=== PATIENT | male | born 1955 | race Caucasian/White ===

== ENCOUNTER 2016-10-08 07:06 | Day surgery (SDC) | payer OTHER ==
[2016-10-08] MEDS ORDERED: ceFAZolin 2 GM/50 ML 50 ML IV ONE (07:21)
[2016-10-08] MEDS ORDERED: LACTATED RINGERS 1,000 ML IV ONE ×3 (07:45→13:00)
[2016-10-08] MEDS ORDERED: ROCURONIUM 50 MG/5 ML VIAL IVP ONE (09:00)
[2016-10-08] MEDS ORDERED: DEXAMETHASONE 4 MG/ML VIAL IVP ONE (09:00)
[2016-10-08] MEDS ORDERED: MIDAZOLAM 2 MG/2 ML VIAL IVP ONE (09:00)
[2016-10-08] MEDS ORDERED: GLYCOPYRROLATE 1 MG/5 ML VIAL IVP ONE (09:00)
[2016-10-08] MEDS ORDERED: ePHEDrine 50 MG/ML VIAL IVP ONE (09:00)
[2016-10-08] MEDS ORDERED: LIDOCAINE-MPF 2% 5 ML VIAL IM ONE (09:00)
[2016-10-08] MEDS ORDERED: fentaNYL 100 MCG/2 ML VIAL IVP ONE (09:00)
[2016-10-08] MEDS ORDERED: ONDANSETRON 4 MG/2 ML VIAL IVP ONE (09:00)
[2016-10-08] MEDS ORDERED: NEOSTIGMINE 1 MG/1 ML 10 ML MDV IVP ONE (09:00)
[2016-10-08] MEDS ORDERED: PROPOFOL 200 MG/20 ML VIAL IVP ONE (09:00)
[2016-10-08] MEDS ORDERED: SODIUM CHLORIDE 0.9% 10 ML VIAL IV ONE (09:00)
[2016-10-08] MEDS ORDERED: SUCCINYLCHOLINE 200 MG/10 ML VIAL IVP ONE (09:00)
[2016-10-08] MEDS ORDERED: BUPIVACAINE 0.5% PF 30 ML VIAL INFIL ONE (09:38)
[2016-10-08] MEDS: HYDROmorphone 1 MG/ML SYRINGE ONE ×2 (11:13→11:25)
[2016-10-08] MEDS ORDERED: oxyCOD/ACETAMIN 5 MG/325 MG TABLET PO ONE (13:08)
== END 2016-10-08 07:07 | disposition home or self-care (01) ==
PROC: 0YU54JZ Supplement Right Inguinal Region with Synthetic Substitute, Percutaneous Endoscopic Approach (ICD-10-PCS; principal; 2016-10-08 08:15)
DX: K40.90 Unilateral inguinal hernia, without obstruction or gangrene, not specified as recurrent (principal); I25.10 Atherosclerotic heart disease of native coronary artery without angina pectoris; Z95.5 Presence of coronary angioplasty implant and graft; G47.33 Obstructive sleep apnea (adult) (pediatric); M35.3 Polymyalgia rheumatica
CPT/HCPCS: 49650; A9270; C1781; J0690; J1170; J7120

== ENCOUNTER 2019-09-10 11:21 | Emergency (ER) | payer OTHER, MEDICARE ==
[2019-09-10 11:37] VITALS: BP 129/72
--- NOTE | 2019-09-10 12:58 | ED Physician Documentation ---
PD HPI LOWER EXT INJURY - Stated complaint Stated Complaint: L LEG PX - Chief complaint Chief Complaint: Ext Problem - History obtained from History obtained from: Patient - History of Present Illness PD HPI LOW EXT INJURY LOCATION: Left (at work about a week ago a large box fell on the lateral side of his left leg and he has persistent pain there. He can walk and bear weight. Pain is actually worse at night and when he is inactive compared to when he is active.) Review of Systems Constitutional: reports: Reviewed and negative Cardiac: reports: Reviewed and negative Respiratory: reports: Reviewed and negative PD PAST MEDICAL HISTORY - Past Medical History Cardiovascular: Coronary artery disease, Angina Respiratory: Sleep apnea Neuro: None Endocrine/Autoimmune: None GI: None : None HEENT: Chronic vision loss Psych: None Musculoskeletal: Rheumatoid arthritis, Chronic back pain Derm: None Other Past Medical History: polymyalgia rheumatica - Past Surgical History Past Surgical History: Yes Ortho: Spine surgery Cardiovascular: Coronary stent - Present Medications Home Medications: Ambulatory Orders Medication Instructions Recorded Confirmed Aspirin [Aspir-Low] 81 mg PO DAILY 10/02/16 10/08/16 Metoprolol [place]/Hydrochlorothiaz 25 mg PO DAILY 10/02/16 10/08/16 [Metoprolol ER-Hctz 25-12.5 mg] Rosuvastatin Calcium [Crestor] 40 mg PO DAILY 10/02/16 10/08/16 predniSONE [Prednisone] 5 mg PO DAILY 10/02/16 10/08/16 Hydrocodone/Acetaminophen 1 - 2 each PO Q6H PRN #10 tablet 09/10/19 [Hydrocodon-Acetaminophen 5-325] - Allergies Allergies/Adverse Reactions: Allergies Allergy/AdvReac Type Severity Reaction Status Date / Time morphine AdvReac Nausea Verified 09/10/19 11:38 - Social History Does the pt smoke?: No Smoking Status: Former smoker Does the pt drink ETOH?: Yes Does the pt have substance abuse?: No - Immunizations Immunizations are current?: No Immunizations: TDAP >10years/unknown PD ED PE NORMAL - Vitals Vital signs reviewed: Yes - General General: Alert and oriented X 3, No acute distress - Extremities Extremities: Other (Some diffuse tenderness over the lateral side of the left leg without calf tenderness. Mostly over the lateral ankle and the fibula above that. No foot tenderness. No knee tenderness. Normal neurovascular function in the foot. No evidence of compartment syndrome.) - Neuro Neuro: Alert and oriented X 3, Normal speech Results - Vitals Vitals: Vital Signs - 24 hr 09/10/19 11:35 Temperature 36.3 C L Heart Rate 81 Respiratory 16 Rate Blood Pressure 129/72 O2 Saturation 99 Oxygen O2 Source Room air - Rads (name of study) XR L ankle and Tib Fib Radiology: EMP read contemporaneously (normal) Departure - Departure Disposition: Home, Self Care Clinical Impression: Contusion of left leg Condition: Good Record reviewed to determine appropriate education?: Yes Instructions: ED Contusion Lower Ext Prescriptions: Hydrocodone/Acetaminophen [Hydrocodon-Acetaminophen 5-325] 1 - 2 each PO Q6H PRN #10 tablet PRN Reason: pain Comments: Recheck with your doctor in 1 week if not better, return for new or worsening symptoms. Discharge Date/Time: 09/10/19 13:32
--- NOTE | 2019-09-10 13:34 | XRAY Report ---
Reason: injury Procedure Date: 09/10/2019 Accession Number: [id number] / [id number] Procedure: XR - Tib/Fib LT CPT Code: Final Report FULL RESULT: EXAM: LEFT TIBIA/FIBULA RADIOGRAPHY EXAM DATE: 09/10/2019 12:00 PM. CLINICAL HISTORY: Pain after injury. COMPARISON: None. TECHNIQUE: 2 views. FINDINGS: Bones: Normal. No fracture or bone lesion. Joints: The visualized knee and ankle joints are normal. No effusions. Soft Tissues: Normal. No soft tissue swelling. IMPRESSION: Normal tibia/fibula radiography. RAD[facility]
--- NOTE | 2019-09-10 13:35 | XRAY Report ---
Reason: injury Procedure Date: 09/10/2019 Accession Number: [id number] / [id number] Procedure: XR - Ankle 3 View LT CPT Code: Final Report FULL RESULT: EXAM: LEFT ANKLE RADIOGRAPHY EXAM DATE: 09/10/2019 12:00 PM. CLINICAL HISTORY: Injury. 100 pound box fell on lower leg and ankle last week. Pain ever since. COMPARISON: None. TECHNIQUE: 3 views. FINDINGS: Bones: Small os trigonum is noted. No fractures or bone lesions. Joints: Normal. No effusion. No subluxations. The ankle mortise is normally aligned. Soft Tissues: Moderate soft tissue swelling over the lateral lower left leg. IMPRESSION: No fracture or malalignment. RADIA
== END 2019-09-10 13:32 | disposition home or self-care (01) ==
LOC: ED 11:21
DX: S80.12XA Contusion of left lower leg, initial encounter (principal); W20.8XXA Other cause of strike by thrown, projected or falling object, initial encounter; Y93.89 Activity, other specified; Y99.0 Civilian activity done for income or pay; M35.3 Polymyalgia rheumatica; Z79.82 Long term (current) use of aspirin; Z87.891 Personal history of nicotine dependence
CPT/HCPCS: 1040M; 73590; 73610; 99283

== ENCOUNTER 2020-06-26 05:13 | Emergency (ER) | payer MEDICARE, OTHER ==
--- NOTE | 2020-06-26 05:15 | ED Physician Documentation ---
PD HPI CHEST PAIN - Stated complaint Stated Complaint: CHEST PX - History obtained from History obtained from: Patient - History of Present Illness Timing - onset: How many hours ago (12), Yesterday (about 5 pm, soon after eating meal.) Timing - onset during: Eating (soon after done eating dinner; was slightly spicy.) Timing - duration: Hours (12) Timing - details: Abrupt onset, Still present (epigastric pain worsens with lying down, better sitting up but then upper back hurts more. Has not eaten since onset. No change with antacids though.), Waxing and waning Quality: Aching, Sharp, Pain Location: Substernal Radiation: Back, Left upper extremity (shoulders), Right upper extremity Improved by: No: Antacids Worsened by: Position (better sitting up). No: Inspiration, Eating Associated symptoms: Nausea. No: Shortness of air, Diaphoresis, Feeling faint / dizzy, General Weakness, Cough Similar symptoms before: Has not had sx before (has had unstable angina 2013 with stent placed. No ND. Did not feel like this, though.) Recently seen: Not recently seen Review of Systems Constitutional: denies: Fever, Chills Nose: denies: Rhinorrhea / runny nose, Congestion Throat: denies: Sore throat Cardiac: reports: Chest pain / pressure (just since last evening; no recent exertional CP nor dyspnea.). denies: Palpitations, Pedal edema, Calf pain Respiratory: denies: Cough GI: denies: Abdominal Pain, Nausea, Vomiting, Diarrhea Skin: denies: Rash, Lesions Neurologic: denies: Generalized weakness, Near syncope PD PAST MEDICAL HISTORY - Past Medical History Cardiovascular: Coronary artery disease, Angina Respiratory: Sleep apnea Neuro: None Endocrine/Autoimmune: None GI: None : None HEENT: Chronic vision loss Psych: None Musculoskeletal: Rheumatoid arthritis, Chronic back pain Derm: None - Past Surgical History Past Surgical History: Yes Ortho: Spine surgery Cardiovascular: Coronary stent - Present Medications Home Medications: Ambulatory Orders Medication Instructions Recorded Confirmed Aspirin [Aspir-Low] 325 mg PO DAILY 10/02/16 10/08/16 Metoprolol Osuna/Hydrochlorothiaz 25 mg PO DAILY 10/02/16 10/08/16 [Metoprolol ER-Hctz 25-12.5 mg] Rosuvastatin Calcium [Crestor] 40 mg PO DAILY 10/02/16 10/08/16 predniSONE [Prednisone] 2.5 mg PO DAILY 10/02/16 10/08/16 Methotrexate 06/26/20 - Allergies Allergies/Adverse Reactions: Allergies Allergy/AdvReac Type Severity Reaction Status Date / Time morphine AdvReac Nausea Verified 06/26/20 05:24 - Social History Does the pt smoke?: No Smoking Status: Former smoker Does the pt drink ETOH?: Yes Does the pt have substance abuse?: No - Immunizations Immunizations are current?: No Immunizations: TDAP >10years/unknown PD ED PE NORMAL - Vitals Vital signs reviewed: Yes - General General: Alert and oriented X 3, No acute distress, Well developed/nourished - HEENT HEENT: Pharynx benign - Neck Neck: Supple, no meningeal sign, No adenopathy - Cardiac Cardiac: RRR, No murmur - Respiratory Respiratory: Clear bilaterally - Abdomen Abdomen: Normal bowel sounds, Soft, Non tender, Non distended - Back Back: No CVA TTP - Derm Derm: Normal color, Warm and dry - Extremities Extremities: No tenderness to palpate, Normal ROM s pain, No edema, No calf tenderness / cord - Neuro Neuro: Alert and oriented X 3, No motor deficit, Normal speech Results - Vitals Vitals: Vital Signs - 24 hr 06/26/20 06/26/20 06/26/20 05:20 05:53 06:20 Temperature 36.8 C 36.8 C Heart Rate 111 H 94 99 Respiratory 20 16 16 Rate Blood Pressure 151/84 H 127/81 H 123/68 O2 Saturation 98 97 99 06/26/20 06/26/20 06/26/20 06:27 06:30 07:00 Temperature 36.8 C Heart Rate 108 H 94 99 Respiratory 16 14 Rate Blood Pressure 114/66 105/62 102/62 O2 Saturation 100 98 Oxygen O2 Source Room air - EKG (time done) 05:19 Rate: Rate (enter#) (102) Rhythm: Sinus tachycardia [place]: Normal Intervals: Normal MO QRS: Poor R wave progression Ischemia: Normal ST segments. No: ST elevation c/w ischemia, ST depression - Labs Labs: Laboratory Tests 06/26/20 06/26/20 06/26/20 05:31 05:31 05:31 WBC 11.5 H RBC 4.33 L Hgb 14.3 Hct 41.9 L MCV 96.8 H MCH 33.0 H MCHC 34.1 RDW 12.7 Plt Count 250 MPV 9.3 Neut # (Auto) 10.0 H Lymph # (Auto) 0.5 L [place] # (Auto) 0.9 Eos # (Auto) 0.1 Baso # (Auto) 0.0 Absolute Nucleated RBC 0.00 Nucleated RBC % 0.0 Sodium 137 Potassium 3.8 Chloride 103 Carbon Dioxide 22 Anion Gap 12.0 BUN 18 Creatinine 1.0 Estimated GFR (MDRD) 75 L Glucose 127 H Calcium 10.3 Total Bilirubin 1.3 H AST 26 ALT 39 Alkaline Phosphatase 61 Troponin I High Sens 10.1 Total Protein 7.2 Albumin 4.7 Globulin 2.5 Albumin/Globulin Ratio 1.9 Lipase 37 - Rads (name of study) chest xray Radiology: Prelim report reviewed (possible small opacity right lower lobe; consideration bronchiolitis, pneumonia), See rad report PD MEDICAL DECISION MAKING - ED course Complexity details: reviewed results, re-evaluated patient (no change with GI cocktail. No change with NTG. CXR clear. Labs without acute process. At this point, also consider vascular, such as dissection. Will get angio. ), considered differential (Your myocardial ischemia, lung process, gastritis or gallbladder, pancreatitis. Will check EKG chest x-ray and labs.), d/w patient ED course: The patient did not have any improvement with a GI cocktail nor nitroglycerin. Toradol is seeming to have some effect starting. He had had a negative troponin at 12 hours after onset of symptoms which seems reasonably conclusive but we can still repeated at 2 hours to be quite sure. Otherwise his description of pain is potentially concerning for vascular and given no other good explanation at this point, I talked with the patient and we shared decision making for angio of the chest to evaluate the aorta. At this point that test is pending. Care is given over to Dr. Quinonez who is the oncoming ER physician and will await the angio results and follow-up with the patient's clinical state and troponin repeat. Departure - Departure Clinical Impression: Chest pain Condition: Stable Record reviewed to determine appropriate education?: Yes
[2020-06-26] MEDS ORDERED: MAG HYDROX/AL HYDROX/SIMETH 30 ML UDC PO STA (05:35)
[2020-06-26] MEDS ORDERED: LIDOCAINE VISCOUS 2% 15 ML UDC MM STA (05:35)
[2020-06-26 05:42] LABS: BASOPHILS % (AUTO) 0.3 %; EOSINOPHILS # (AUTO) 0.1 10^3/uL (0.0-0.7); EOSINOPHILS % (AUTO) 0.4 %; HGB - HEMOGLOBIN 14.3 g/dL (14.0-18.0); LYMPHOCYTES # (AUTO) 0.5 10^3/uL (1.5-3.5); LYMPHOCYTES % (AUTO) 4.7 %; MEAN CORPUSCULAR HGB CONC 34.1 g/dL (32.0-36.0); MEAN CORPUSCULAR VOLUME 96.8 fL (80.0-94.0); MEAN PLATELET VOLUME 9.3 fL (7.4-11.4); MONOCYTES # (AUTO) 0.9 10^3/uL (0.0-1.0); MONOCYTES % (AUTO) 7.7 %; NEUTROPHILS % (AUTO) 86.6 %; PLT - PLATELET COUNT 250 10^3/uL (130-450); RED BLOOD COUNT 4.33 10^6/uL (4.70-6.10); RED CELL DISTRIBUTION WIDTH 12.7 % (12.0-15.0); WHITE BLOOD COUNT 11.5 x10^3/uL (4.8-10.8)
[2020-06-26 06:16] LABS: ALBUMIN 4.7 g/dL (3.2-5.5); ALBUMIN/GLOBULIN RATIO 1.9 (1.0-2.2); BILIRUBIN,TOTAL 1.3 mg/dL (0.2-1.0); CALCIUM 10.3 mg/dL (8.5-10.3); TOTAL PROTEIN 7.2 g/dL (6.7-8.2)
[2020-06-26] MEDS ORDERED: NITROGLYCERIN SL 0.4 MG TABLET SL STA (06:17)
[2020-06-26] MEDS ORDERED: KETOROLAC 30 MG/ML VIAL IVP STA (06:21)
[2020-06-26] MEDS ORDERED: IOVERSOL 320 100 ML VIAL IVP ONE ×2 (07:05→15:22)
--- NOTE | 2020-06-26 07:35 | ED Physician Documentation ---
ED Addendum - Addendum Addendum: 06/26/20 07:[address] Erazo at shift change. Briefly this is a 64-year-old gentleman with history of coronary disease, stented once in 2013 who developed upper abdominal pain rating to the back and shoulder blades last night after eating hot and sour soup. At home he took some hydrocodone, and acids. On my evaluation he is feeling better after a GI cocktail and some Toradol. Initial troponin negative, EKG nonischemic. Dr. Erazo sent him for CT angiography of the chest to rule out dissection, waiting on radiology read but to my eye grossly negative. Chest x-ray concerning for some bronchial wall thickening in the right lower lobe, I do not really appreciate this on the CAT scan, will await CT read before addressing this. Will check a second troponin. He is nontender in the right upper quadrant. 06/26/20 08:35 Repeat troponin completely flat, 10, 10. CT angiography negative per the radiologist. 06/26/20 08:36 Disposition discharged home, condition stable Diagnosis 1. Unspecified chest pain
--- NOTE | 2020-06-26 08:34 | CT Report ---
PROCEDURE: ANGIO CHEST W/WO INDICATIONS: chest to back pain; evaluate aorta CONTRAST: IV CONTRAST: Optiray 320 ml: 80 PO CONTRAST: *NO PO CONTRAST TECHNIQUE: After the administration of intravenous contrast, 2 mm thick sections acquired from the pulmonary api tony to the posterior costophrenic angles. 3-dimensional maximum intensity projection (MIP) coronal a nd sagittal reformats were then acquired through the thorax. For radiation dose reduction, the follow ing was used: automated exposure control, adjustment of mA and/or kV according to patient size. COMPARISON: Chest x-ray 06/26/2020 FINDINGS: Image quality: Excellent. Pulmonary arteries: Pulmonary arteries are normal in size, and demonstrate no intraluminal filling d efects to suggest central pulmonary embolism. Lungs and pleura: Lungs are clear. No pleural effusions or pneumothorax. Central and peripheral ai rways are patent. Mediastinum: Heart size is normal, without pericardial effusion. No mediastinal or hilar adenopathy . Thoracic aorta is normal in caliber and enhancement. There is no aneurysmal dilation, vascular oc clusion, hemodynamically significant stenosis or dissection. Esophagus is normal in caliber, with mil d hiatal hernia. Bones and chest wall: No suspicious bony lesions. Ribs and thoracic spine appear intact throughout. Is unremarkable No axillary or supraclavicular adenopathy. Abdomen: Visualized upper abdominal solid organs appear normal in the early arterial phase of enhanc ement. IMPRESSION: 1. No pulmonary embolism. 2. Aorta demonstrates no areas of hemodynamically significant stenosis, vascular occlusion, aneurysma l dilation or dissection. Reviewed by: Suellen Tee MD on 06/26/2020 8:32 AM PST Approved by: Suellen Tee MD on 06/26/2020 8:32 AM PST Station ID: [id number]
[2020-06-26 08:44] VITALS: BP 102/60
--- NOTE | 2020-06-26 09:32 | XRAY Report ---
PROCEDURE: Chest 1 View X-Ray INDICATIONS: Chest Pain TECHNIQUE: One view of the chest was acquired. COMPARISON: 05/16/2014 FINDINGS: Surgical changes and devices: None. Lungs and pleura: No pleural effusions or pneumothorax. Lungs are clear. Mediastinum: Mediastinal contours appear normal. Heart size is normal. Bones and chest wall: No suspicious bony lesions. Overlying soft tissues appear unremarkable. IMPRESSION: No acute cardiopulmonary disease process. Reviewed by: Sherrie Mejia MD, PhD on 06/26/2020 9:31 AM [facility] Approved by: Sherrie Mejia MD, PhD on 06/26/2020 9:31 AM [facility] Station ID: [id number]
== END 2020-06-26 08:46 | disposition home or self-care (01) ==
LOC: ED 05:13
DX: R07.89 Other chest pain (principal); R10.13 Epigastric pain; R00.0 Tachycardia, unspecified; I49.1 Atrial premature depolarization; I25.10 Atherosclerotic heart disease of native coronary artery without angina pectoris; Z95.5 Presence of coronary angioplasty implant and graft; Z79.82 Long term (current) use of aspirin; Z87.891 Personal history of nicotine dependence
CPT/HCPCS: 36415; 71045; 71275; 80053; 83690; 84484; 85025; 93005; 96374; 99284; A9270; Q9967

== ENCOUNTER 2021-05-17 12:56 | Outpatient (CLI) | payer OTHER ==
--- NOTE | 2021-05-18 16:19 | DEXA Report ---
PROCEDURE: Dexa Spine and/or Hip INDICATIONS: HX OF PREDNISONE USE, SCREENING FOR OSTEOPOROSIS TECHNIQUE: Dual energy x-ray absorptiometry (DXA) was performed on a [employer]. Regions measur ed are the AP Spine, femoral neck, and if needed forearm. COMPARISON: None. FINDINGS: Lumbar Spine: Bone Mineral Density 1.278 g/cm/cm,T score 0.5, normal Left Hip: Bone Mineral Density 1.05 to g/cm/cm,T score -0.3, normal Left Femoral Neck: Bone Mineral Density 0.922 g/cm/cm, T score -1.1, minimal osteopenia (T score greater or equal to -1.0: NORMAL) (T score from -1.1 to -2.4: OSTEOPENIA) (T score less than or equal to -2.5 to: OSTEOPOROSIS) Impression: Minimal osteopenia in the left femoral neck. Patients with diagnosis of osteoporosis or osteopenia should have regular bone mineral density assess ment. For those eligible for Medicare, routine testing is allowed once every 2 years. Testing frequ ency can be increased for patients who have rapidly progressing disease or for those who are receivin g medical therapy to restore bone mass. Reviewed by: Suellen Tee MD on 05/18/2021 4:17 PM PDT Approved by: Suellen Tee MD on 05/18/2021 4:17 PM PDT Station ID: [id number]
== END 2021-05-17 12:57 | disposition home or self-care (01) ==
LOC: DI 12:56
PROVIDERS: ATTEND Internal Medicine
DX: Z13.820 Encounter for screening for osteoporosis (principal); M85.88 Other specified disorders of bone density and structure, other site

== ENCOUNTER 2022-10-07 11:03 | Outpatient (CLI) | payer MEDICARE, OTHER ==
--- NOTE | 2022-10-07 13:45 | XRAY Report ---
PROCEDURE: Shoulder 3 View LT INDICATIONS: PAIN IN LEFT SHOULDER TECHNIQUE: 3 views of the shoulder were acquired. COMPARISON: None. FINDINGS: Bones: No fractures or dislocations. No suspicious bony lesions. Visualized ribs appear intact. Soft tissues: No suspicious soft tissue calcifications. There is some numb-[id number] AC joint degenerative change present with no significant glenohumeral joint degenerative change is seen. IMPRESSION: 1. No evidence for acute osseous abnormality involving the left shoulder. 2. Eadw-hy-ahmhglvj AC joint degenerative change. Reviewed by: Marshall Schwartz MD on 10/07/2022 11:32 AM PDT Approved by: Marshall Schwartz MD on 10/07/2022 11:32 AM PDT Station ID: [id number]
== END 2022-10-07 11:04 | disposition home or self-care (01) ==
LOC: DI 11:03
PROVIDERS: ATTEND Internal Medicine
DX: M19.012 Primary osteoarthritis, left shoulder (principal)